=== PATIENT | female | born 1995 | race Caucasian/White ===

== ENCOUNTER 2019-01-03 17:56 | Emergency (ER) | payer BC, MEDICAID ==
[2019-01-03 18:28] VITALS: BP 127/95
[2019-01-03] MEDS ORDERED: Albuterol HFA INHALER* 8 gm MDI INH ONE (18:49)
--- NOTE | 2019-01-03 18:56 | UC ---
Respiratory Complaint HPI - HPI Summary HPI Summary: COUGH FOR ABOUT 5 DAYS. WORSE AT NIGHT. CHILLS , FEELS SOB WHEN SHE LAYS FLAT. CHEST PRESSURE, NAUSEA AND SHAKEY AT TIMES. NO SORE THROAT, HEADACHE OR EAR PAIN. - History of Current Complaint Chief Complaint: UCRespiratory Stated Complaint: COUGH Time Seen by Provider: 01/03/19 18:35 Hx Obtained From: Patient Hx Last Menstrual Period: 11/25/18 ?: No Onset/Duration: Sudden Onset, Lasting Days Timing: Constant Severity Initially: Mild Severity Currently: Moderate Pain Intensity: 5 Character: Cough: Nonproductive Aggravating Factors: Exertion, Deep Breaths, Recumbent Position Alleviating Factors: Nothing Associated Signs And Symptoms: Positive: URI - Allergies/Home Medications Allergies/Adverse Reactions: Allergies Allergy/AdvReac Type Severity Reaction Status Date / Time Penicillins Allergy Unknown Hives Verified 01/03/19 18:12 Home Medications: Home Medications Dextromethorphn/Acetaminoph/Cp [Vicks Nyquil Cold & Flu N] 1 liq PO PRN [History] Irbesartan (NF) [Avapro (NF)] 150 mg PO DAILY 01/03/19 [History Confirmed ] Levothyroxine TAB* [Synthroid TAB*] 200 mcg PO DAILY 01/03/19 [History Confirmed 01/03/19] Liothyronine TAB* [Cytomel TAB*] 5 mcg PO DAILY 01/03/19 [History Confirmed ] Loratadine [Claritin 10 MG CAP] 10 mg PO DAILY PRN 01/03/19 [History Confirmed 01/03/19] PMH/Surg Hx/FS Hx/Imm Hx Previously Healthy: Yes - Surgical History Surgical History: None - Family History Known Family History: Positive: Hypertension - Social History Alcohol Use: None Substance Use Type: None Smoking Status (MU): Never Smoked Tobacco - Immunization History Most Recent Influenza Vaccination: 2013 Vaccination Up to Date: Yes Review of Systems All Other Systems Reviewed And Are Negative: Yes Respiratory: Positive: Shortness Of Breath, Cough Physical Exam Triage Information Reviewed: Yes Appearance: Well-Appearing, Pain Distress, Obese Vital Signs: Initial Vital Signs Temp 98.1 F 01/03/19 18:20 Pulse 100 01/03/19 18:20 Resp 20 01/03/19 18:20 BP 127/95 01/03/19 18:20 Pulse Ox 98 01/03/19 18:20 Vital Signs Reviewed: Yes Eye Exam: Normal ENT: Positive: Pharyngeal erythema Dental Exam: Normal Neck exam: Normal Respiratory Exam: Normal Respiratory: Positive: Chest non-tender, Lungs clear, Normal breath sounds Cardiovascular Exam: Normal Cardiovascular: Positive: RRR, No Murmur, Pulses Normal Abdominal Exam: Normal Musculoskeletal Exam: Normal Neurological Exam: Normal Psychological Exam: Normal Skin Exam: Normal Respiratory Course/Dx - Course Course Of Treatment: hx obtained, exam performed, meds reviewed, treaed for cough and bronchospasm - Differential Dx/Diagnosis Provider Diagnosis: Cough Discharge - Sign-Out/Discharge Documenting (check all that apply): Patient Departure All imaging exams completed and their final reports reviewed: No Studies - Discharge Plan Condition: Stable Disposition: HOME Prescriptions: predniSONE [Prednisone 20 MG TAB] 20 mg PO DAILY #10 tablet Patient Education Materials: Bronchospasm (ED) Referrals: Erma Servin PA [Primary Care Provider] - Additional Instructions: 1. use the medication as prescribed. 2. Increase fluid intake and sleep with head elevated. 3. COugh drops can also be effective 4. FOllow up as needed. - Billing Disposition and Condition Condition: STABLE Disposition: Home
== END 2019-01-03 19:13 | disposition home or self-care (01) ==
LOC: UCCORT 17:56
DX: R05 Cough (principal)
CPT/HCPCS: 99212; A9270-GY; G0463

== ENCOUNTER 2019-01-08 18:26 | Emergency (ER) | payer BC ==
[2019-01-08 18:41] VITALS: BP 148/83
[2019-01-08] MEDS ORDERED: Albuterol 2.5 MG/3 ML NEB.SOL* (0.083%) INH ONE (19:14)
--- NOTE | 2019-01-08 19:18 | UC ---
Respiratory Complaint HPI - HPI Summary HPI Summary: 23-year-old woman comes in with chief complaint of shortness of breath. Patient 's been having cough chest congestion and wheezing. She was seen here on January 03 that started about an inhaler and steroids which she did improve initially and then today her wheezing got worse despite continuing treatment at home. She is bringing up some sputum. No recent fevers. Her chest feels tight. - History of Current Complaint Chief Complaint: UCGeneralIllness Stated Complaint: RECHECK-COUGH,CONGESTION-SOB NOW Time Seen by Provider: 01/08/19 19:08 Hx Last Menstrual Period: 01/06/19 Pain Intensity: 0 - Allergies/Home Medications Allergies/Adverse Reactions: Allergies Allergy/AdvReac Type Severity Reaction Status Date / Time Penicillins Allergy Unknown Hives Verified 01/08/19 18:41 Home Medications: Home Medications Albuterol HFA INHALER* [Ventolin HFA Inhaler*] 2 puff INH Q4H PRN 01/08/19 [ History Confirmed 01/08/19] PMH/Surg Hx/FS Hx/Imm Hx Previously Healthy: Yes Endocrine History: Hypothyroidism Cardiovascular History: Hypertension - Surgical History Surgical History: None - Family History Known Family History: Positive: Hypertension - Social History Alcohol Use: None Substance Use Type: None Smoking Status (MU): Never Smoked Tobacco - Immunization History Most Recent Influenza Vaccination: 2013 Vaccination Up to Date: Yes Review of Systems All Other Systems Reviewed And Are Negative: Yes Constitutional: Positive: Negative Skin: Positive: Negative Eyes: Positive: Negative ENT: Positive: Negative Respiratory: Positive: Other - SEE HPI Cardiovascular: Positive: Other - SEE HPI Gastrointestinal: Positive: Negative Motor: Positive: Negative Neurovascular: Positive: Negative Musculoskeletal: Positive: Negative Neurological: Positive: Negative Psychological: Positive: Negative Is Patient Immunocompromised?: No Physical Exam Triage Information Reviewed: Yes Appearance: Well-Appearing, No Pain Distress, Well-Nourished Vital Signs: Initial Vital Signs Temp 97.2 F 01/08/19 18:37 Pulse 91 01/08/19 18:37 Resp 18 01/08/19 18:37 BP 148/83 01/08/19 18:37 Pulse Ox 97 01/08/19 18:37 Vital Signs Reviewed: Yes Eye Exam: Normal Eyes: Positive: Conjunctiva Clear ENT: Positive: Pharyngeal erythema, TMs normal Neck: Positive: Supple Respiratory: Positive: No respiratory distress, Rhonchi, Wheezing Cardiovascular: Positive: RRR Musculoskeletal: Positive: Strength Intact, ROM Intact Neurological Exam: Normal Neurological: Positive: Alert, Muscle Tone Normal Psychological Exam: Normal Psychological: Positive: Normal Response To Family, Age Appropriate Behavior Skin Exam: Normal Respiratory Course/Dx - Course Course Of Treatment: On chest x-ray I see a right-sided infiltrate. Radiologist reading is pending. Going to treat with azithromycin. Presently the patient's been on prednisone 20 mg a day going to increase that. In clinic we gave her 60 mg prednisone him recommending 60 mg tomorrow and then 40 mg a day for the next 4 days. I let her know that if she did not improve or if she worsened she needs to the emergency department for further evaluation and care. Here in clinic she had an albuterol nebulizer which did help her breathe better. - Differential Dx/Diagnosis Provider Diagnosis: Pneumonia, Bronchitis Discharge - Sign-Out/Discharge Documenting (check all that apply): Patient Departure All imaging exams completed and their final reports reviewed: No - Discharge Plan Condition: Stable Disposition: HOME Prescriptions: Albuterol HFA INHALER* [Ventolin HFA Inhaler*] 2 puff INH Q4H PRN #1 mdi PRN Reason: Wheezing Azithromycin 250 mg PO DAILY #4 tablet predniSONE TAB* [Deltasone 20 MG TAB*] 40 mg PO DAILY #8 tab Patient Education Materials: Community Acquired Pneumonia (ED), Bronchospasm ( ED) Referrals: Erma Servin PA [Primary Care Provider] - Additional Instructions: FOLLOW UP WITH YOUR DOCTOR. TOMORROW, TAKE 60MG OF PREDNISONE. THEN, TAKE 40MG OF PREDNISONE DAILY FOR THE NEXT 4 DAYS. GO TO THE EMERGENCY DEPARTMENT IF WORSE; FEVER, SHORTNESS OF BREATH, YOU FEEL ILL OR ANY QUESTIONS OR CONCERNS. - Billing Disposition and Condition Condition: STABLE Disposition: Home
[2019-01-08] MEDS ORDERED: Azithromycin TAB* 250 MG PO ONE (19:52)
[2019-01-08] MEDS ORDERED: predniSONE TAB* 20 MG PO ONE (19:52)
--- NOTE | 2019-01-09 09:16 | UC ---
- Progress Note Progress Note: wet read correct Course/Dx - Diagnoses Provider Diagnoses: Pneumonia, Bronchitis Discharge - Sign-Out/Discharge Documenting (check all that apply): Patient Departure All imaging exams completed and their final reports reviewed: Yes - Discharge Plan Condition: Stable Disposition: HOME Prescriptions: Albuterol HFA INHALER* [Ventolin HFA Inhaler*] 2 puff INH Q4H PRN #1 mdi PRN Reason: Wheezing Azithromycin 250 mg PO DAILY #4 tablet predniSONE TAB* [Deltasone 20 MG TAB*] 40 mg PO DAILY #8 tab Patient Education Materials: Community Acquired Pneumonia (ED), Bronchospasm ( ED) Referrals: Erma Servin PA [Primary Care Provider] - Additional Instructions: FOLLOW UP WITH YOUR DOCTOR. TOMORROW, TAKE 60MG OF PREDNISONE. THEN, TAKE 40MG OF PREDNISONE DAILY FOR THE NEXT 4 DAYS. GO TO THE EMERGENCY DEPARTMENT IF WORSE; FEVER, SHORTNESS OF BREATH, YOU FEEL ILL OR ANY QUESTIONS OR CONCERNS. - Billing Disposition and Condition Condition: STABLE Disposition: Home
== END 2019-01-08 20:03 | disposition home or self-care (01) ==
LOC: UCCORT 18:26
DX: J18.9 Pneumonia, unspecified organism (principal); J40 Bronchitis, not specified as acute or chronic; I10 Essential (primary) hypertension; Z88.0 Allergy status to penicillin
CPT/HCPCS: 71046; 99213; A9270-GY; G0463; J7512